=== PATIENT | male | born 1990 | race Two or more races ===

== ENCOUNTER 2023-11-11 15:28 | Emergency (ER) | payer MEDICAID ==
[~2023-11-11] VITALS: Ht 167.6 cm; Wt 63.2 kg
[2023-11-11] MEDS: DiphenhydrAMINE HCL 50 MG/ML VIAL IVP ONE (15:36)
[2023-11-11] MEDS: MethylPREDNISolone SOD SUCC 125 MG/2 ML VIAL IVP ONE (15:36)
[2023-11-11] MEDS: SODIUM CHLORIDE 0.9% 1,000 ML IV ONE (15:36)
[2023-11-11] MEDS: LORazepam 2 MG/ML VIAL IVP ONE (15:36)
[2023-11-11 15:41] VITALS: TEMP 98.3
[2023-11-11 15:54] LABS: BASOPHILS % (AUTO) 1.3 % (0.0-2.0); EOSINOPHILS % (AUTO) 1.4 % (1.0-6.0); HEMATOCRIT 47.9 % (41-53); HEMOGLOBIN 16.7 g/dL (13.5-17.5); LYMPHOCYTES % (AUTO) 26.9 % (22.0-44.0); MEAN CORPUSCULAR HGB CONC 34.8 G/dL (31.0-37.0); MEAN CORPUSCULAR VOLUME 95 fL (80-100); MONOCYTES # (AUTO) 0.6 K/uL (0.1-1.0); MONOCYTES % (AUTO) 8.2 % (2.0-9.0); NEUTROPHILS # (AUTO) 4.5 K/uL (1.8-7.7); NEUTROPHILS % (AUTO) 62.2 % (40.0-70.0); PLATELET COUNT (AUTO) 325 K/uL (150-450); RED BLOOD CELL COUNT(AUTO) 5.06 MIL/uL (4.50-5.90); RED CELL DISTRIBUTION WIDTH 12.6 % (11.5-14.5); WHITE BLOOD COUNT (AUTO) 7.3 K/uL (4.5-11.0)
[2023-11-11 16:03] LABS: ANION GAP 14 mmol/L (8-16); CALCIUM, TOTAL 9.2 mg/dL (8.8-10.5); CARBON DIOXIDE 25 mmol/L (22-29); CHLORIDE 101 mmol/L (98-107); CREATININE 1.25 mg/dL (0.60-1.30); GLOMERULAR FILTR. RATE CALC 50 mL/min (>60); GLUCOSE,RANDOM 99 mg/dL (70-110); POTASSIUM 3.4 mmol/L (3.5-5.1); SODIUM SERUM 140 mmol/L (136-145); UREA NITROGEN, BLOOD 17 mg/dL (7-18)
[2023-11-11 16:10] LABS: ALCOHOL, BLOOD (SERUM) < 3 mg/dL (0-10)
[2023-11-11 16:11] LABS: TROPONIN I-HIGH SENSITIVITY Less Than 4 ng/L (<76)
[2023-11-11 16:19] LABS: B-TYPE NATRIURETIC PEPTIDE < 5 pg/mL (0-100)
[2023-11-11 16:27] LABS: ALANINE AMINOTRANSFERASE 27 U/L (12-78); ALBUMIN 4.1 g/dL (3.4-5.0); ALKALINE PHOSPHATASE 69 U/L (46-116); ASPARTATE AMINOTRANSFERASE 24 U/L (15-37); BILIRUBIN,TOTAL 2.6 mg/dL (0.1-1.0); CREATINE KINASE, TOTAL ONLY 452 U/L (39-308); TOTAL PROTEIN, SERUM 8.1 g/dL (6.4-8.2)
[2023-11-11 17:14] VITALS: BP 109/72; PULSE 83; RESP 16
[2023-11-11] MEDS ORDERED: DIPH-1243 PO (18:22)
[2023-11-11] MEDS ORDERED: PRED-554 PO (18:22)
== END 2023-11-11 18:35 | disposition left against medical advice (07) ==
LOC: EMS 15:30 → EDBD 15:30 → EMS 18:35
DX: T63.441A Toxic effect of venom of bees, accidental (unintentional), initial encounter (principal); R06.02 Shortness of breath; Y92.89 Other specified places as the place of occurrence of the external cause
CPT/HCPCS: 99285; 96374; 71045; 96375; 96361; 80053; 82550; 83880; 84484; 85025; 36415; 93005; G0480; J1200; J2060; J2930; J7030